=== PATIENT | female | born 1975 | race Caucasian/White ===

== ENCOUNTER 2017-05-12 14:55 | Outpatient (CLI) | payer OTHER | END 2017-05-12 18:00 | disposition home or self-care (01) | LOC: NST 14:55 | DX: Z34.83 Encounter for supervision of other normal pregnancy, third trimester (principal); O30.003 Twin pregnancy, unspecified number of placenta and unspecified number of amniotic sacs, third trimester ==

== ENCOUNTER 2017-06-05 12:00 | Inpatient (IN) | payer OTHER ==
[~2017-06-05] VITALS: Ht 157.5 cm; Wt 2.3 kg
[2017-06-11] MEDS ORDERED: PRENATE ELITE1 EAC2 PO (16:18)
[2017-06-15] MEDS ORDERED: PROTONIX20 MG PO (12:37)
== END 2017-06-18 15:15 | disposition home or self-care (01) | DRG 765 ==
LOC: LDR 06-15 11:28 → OB/GYN 06-15 11:28 → O/R 06-15 11:28 → LDR 06-15 12:03 → OB/GYN 06-16 09:34
PROVIDERS: Obstetrics & Gynecology Maternal & Fetal Medicine
PROC: 4A1HXCZ Monitoring of Products of Conception, Cardiac Rate, External Approach (ICD-10-PCS; 2017-06-15)
PROC: 4A033R1 Measurement of Arterial Saturation, Peripheral, Percutaneous Approach (ICD-10-PCS; 2017-06-15)
PROC: 10D00Z1 Extraction of Products of Conception, Low, Open Approach (ICD-10-PCS; principal; 2017-06-15 12:15)
DX: O34.211 Maternal care for low transverse scar from previous cesarean delivery (principal); O10.013 Pre-existing essential hypertension complicating pregnancy, third trimester; O32.2XX2 Maternal care for transverse and oblique lie, fetus 2; O30.003 Twin pregnancy, unspecified number of placenta and unspecified number of amniotic sacs, third trimester; Z3A.37 37 weeks gestation of pregnancy; Z37.2 Twins, both liveborn